=== PATIENT | female | born 1995 | race Caucasian/White ===

== ENCOUNTER 2020-10-04 01:47 | Emergency (ER) | payer OTHER ==
[~2020-10-04] VITALS: Ht 149.9 cm; Wt 72.6 kg
[2020-10-04] MEDS ORDERED: ACID CONTROLLER20 MG PO (02:02)
[2020-10-04 02:23] LABS: ABSOLUTE EOSINOPHILS 0.1 thou/uL (0.0-0.7); ABSOLUTE LYMPHOCYTES 2.1 thou/uL (0.8-5.3); ABSOLUTE MONOCYTES 0.5 thou/uL (0.0-1.2); ABSOLUTE NEUTROPHILS 7.5 thou/uL (1.6-8.1); BASOPHILS 0.4 %; EOSINOPHILS 0.8 %; HEMATOCRIT 43.7 % (37.0-47.0); HEMOGLOBIN 14.7 gm/dL (12.0-15.0); LYMPHOCYTES 20.5 %; MCH 28.6 pg (26.0-34.0); MCHC 33.6 g/dL (28.0-37.0); MCV 85.1 fL (80.0-100.0); MONOCYTES 4.6 %; MPV 7.2 fl. (7.2-11.1); NUCLEATED RBCS 0 /100WBC; PLATELET COUNT* 416 thou/uL (150-400); POLYS 73.7 %; RBC 5.13 mil/uL (4.20-5.00); RDW-CV 13.2 % (10.5-14.5); WBC 10.2 thou/uL (4.0-11.0)
[2020-10-04 02:36] LABS: URINE BILIRUBIN NEGATIVE (Negative); URINE BLOOD 2+ (Negative); URINE CLARITY CLEAR; URINE COLOR YELLOW; URINE GLUCOSE-RANDOM NEGATIVE (Negative); URINE KETONES NEGATIVE (Negative); URINE LEUKOCYTES-REFLEX NEGATIVE (Negative); URINE NITRITE-REFLEX NEGATIVE (Negative); URINE PROTEIN NEGATIVE (Negative); URINE UROBILINOGEN 0.2 E.U./dl (0.2-1.0)
[2020-10-04 02:42] LABS: CALCIUM 9.7 mg/dL (8.5-10.1); CREATININE 0.8 mg/dL (0.6-1.3); POTASSIUM 3.7 mmol/L (3.5-5.1)
[2020-10-04 02:46] LABS: AMP/METHAMP POSITIVE (Negative); BARBITURATES Negative (Negative); BENZODIAZEPINES Negative (Negative); COCAINE Negative (Negative); METHADONE Negative (Negative); OPIATES Negative (Negative); PCP Negative (Negative); THC Negative (Negative)
[2020-10-04 02:47] LABS: ALBUMIN 3.8 g/dL (3.4-5.0); TOTAL BILIRUBIN 0.3 mg/dL (<0.1-1.0); TOTAL PROTEIN 8.4 g/dL (6.4-8.2)
[2020-10-04 02:54] LABS: SQUAMOUS 4-10 Moderate /LPF (0-3); URINE WBC-REFLEX 6-15 Few /HPF (0-5)
[2020-10-04 02:55] LABS: BACTERIA-REFLEX >30 Many /HPF (None Seen); CASTS None Seen /LPF (None Seen); CRYSTALS None Seen /LPF (None Seen); MUCUS 4-6 Moderate strn/LPF (None Seen)
[2020-10-04] MEDS ORDERED: ZOFRAN ODT4 MG PO (04:17)
[2020-10-04] MEDS ORDERED: VIBRAMYCIN 100100 MG PO (04:17)
[2020-10-04 04:24] VITALS: BP 122/68
[2020-10-04] MEDS ORDERED: HYDROXYZINE HCL25 M2 PO (04:51)
--- NOTE | 2020-10-04 12:45 | EKG ---
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 Room: : 1995 Requested By: Brook Phillips Order Number: [id number] MD: Maximus Tsai Measurements Intervals [place] Rate: 94 P: 49 AR: 149 QRS: 58 QRSD: 92 T: 5 QT: 369 QTc: 462 Interpretive Statements Sinus rhythm Abnrm T, consider ischemia, anterolateral lds No previous ECG available for comparison Electronically Signed On 10-04-2020 12:45:20 MUSEUM SERVICE SCHEDULER by Maximus Tsai [email or web address] <ELECTRONICALLY SIGNED> By: Maximus Tsai MD, [facility] 10/04/20 1245 020 0 Maximus Tsai MD, [facility] /EPI
== END 2020-10-04 04:24 | disposition home or self-care (01) ==
LOC: M.ERS 01:47
PROVIDERS: Emergency Medicine
DX: R11.10 Vomiting, unspecified (principal); Z20.828 Contact with and (suspected) exposure to other viral communicable diseases; R19.7 Diarrhea, unspecified; Z87.442 Personal history of urinary calculi; Z79.899 Other long term (current) drug therapy

== ENCOUNTER 2020-10-05 01:23 | Emergency (ER) | payer OTHER ==
[~2020-10-05] VITALS: Ht 152.4 cm; Wt 65.8 kg
[~2020-10-05 01:23] MED LIST: ACID CONTROLLER20 MG PO; HYDROXYZINE HCL25 M2 PO; VIBRAMYCIN 100100 MG PO; ZOFRAN ODT4 MG PO
[2020-10-05 02:37] LABS: ABSOLUTE BASOPHILS 0.1 thou/uL (0.0-0.2); ABSOLUTE EOSINOPHILS 0.1 thou/uL (0.0-0.7); ABSOLUTE LYMPHOCYTES 2.4 thou/uL (0.8-5.3); ABSOLUTE MONOCYTES 0.6 thou/uL (0.0-1.2); ABSOLUTE NEUTROPHILS 6.4 thou/uL (1.6-8.1); BASOPHILS 0.6 %; EOSINOPHILS 1.1 %; HEMATOCRIT 42.3 % (37.0-47.0); LYMPHOCYTES 25.6 %; MCH 28.5 pg (26.0-34.0); MCHC 33.2 g/dL (28.0-37.0); MCV 85.7 fL (80.0-100.0); MPV 7.4 fl. (7.2-11.1); NUCLEATED RBCS 0 /100WBC; PLATELET COUNT* 394 thou/uL (150-400); POLYS 66.7 %; RBC 4.93 mil/uL (4.20-5.00); WBC 9.6 thou/uL (4.0-11.0)
[2020-10-05 02:43] LABS: CALCIUM 9.5 mg/dL (8.5-10.1); CREATININE 0.9 mg/dL (0.6-1.3); POTASSIUM 4.2 mmol/L (3.5-5.1)
[2020-10-05 02:47] LABS: ALBUMIN 3.7 g/dL (3.4-5.0); MAGNESIUM 2.3 mg/dL (1.8-2.4); TOTAL BILIRUBIN 0.3 mg/dL (<0.1-1.0); TOTAL PROTEIN 7.4 g/dL (6.4-8.2)
[2020-10-05 03:59] VITALS: BP 109/75
--- NOTE | 2020-10-05 12:14 | EKG ---
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: [place] : 1995 Requested By: Brook Phillips Order Number: [id number] MD: Inder Mayo Measurements Intervals [place] Rate: 93 P: 55 NE: 142 QRS: 41 QRSD: 85 T: -15 QT: 365 QTc: 454 Interpretive Statements Sinus rhythm Abnrm T, consider ischemia, anterolateral lds Compared to ECG 10/04/2020 02:01:43 No significant changes Electronically Signed On 10-05-2020 12:13:59 PAGINATOR by Inder Mayo [email or web address] <ELECTRONICALLY SIGNED> By: Inder Mayo MD, [facility] 10/05/20 1213 0138 0138 Inder Mayo MD, [facility] /EPI
== END 2020-10-05 04:00 | disposition home or self-care (01) ==
LOC: M.ERS 01:23
PROVIDERS: Emergency Medicine
DX: F41.9 Anxiety disorder, unspecified (principal); K21.9 Gastro-esophageal reflux disease without esophagitis; Z87.442 Personal history of urinary calculi